=== PATIENT | male | born 1945 | race Asian ===

== ENCOUNTER 2021-04-25 15:51 | Emergency (ER) | payer MEDICARE ==
[~2021-04-25] VITALS: Ht 165.1 cm; Wt 59.0 kg
[2021-04-25 16:50] LABS: CLARITY,URINE SL CLOUDY (CLEAR); COLOR,URINE ORANGE (YELLOW); KETONES,URINE 1+ (NEGATIVE); LEUKOCYTE ESTERASE ,URINE LARGE (NEGATIVE); NITRITE,URINE POSITIVE (NEGATIVE); PROTEIN,URINE DIPSTICK 2+ (NEGATIVE)
[2021-04-25 17:02] LABS: BACTERIA,URINE FEW /HPF; RBC,URINE 0-5 /HPF (0-5); WBC,URINE (MAN) 0-5 /HPF (0-5)
[2021-04-25 17:04] VITALS: BP 153/91
== END 2021-04-25 17:00 | disposition home or self-care (01) ==
LOC: ER 15:55
DX: R33.9 Retention of urine, unspecified (principal); N39.0 Urinary tract infection, site not specified; I10 Essential (primary) hypertension; E78.5 Hyperlipidemia, unspecified
CPT/HCPCS: 51700; 81001; 99283